=== PATIENT | male | born 1955 | race Caucasian/White ===

== ENCOUNTER 2016-06-18 15:42 | Inpatient (IN) | payer OTHER ==
[~2016-06-18] VITALS: Ht 172.7 cm; Wt 78.9 kg
[2016-06-18] MEDS ORDERED: DIABETES MEDS (15:49)
[2016-06-18] MEDS ORDERED: ACETAMINOPHEN 1000 MG/ISO-OSM 100 ML IV ONE (16:45)
[2016-06-18] MEDS ORDERED: SODIUM CHLORIDE 0.9% 1,000 ML IV ONE (16:45)
[2016-06-18 17:03] LABS: EOSINOPHILS % (AUTO) 0.06 % (1.0-6.0); HEMATOCRIT 23.9 % (41-53); HEMOGLOBIN 7.8 g/dL (13.5-17.5); LYMPHOCYTES # (AUTO) 0.5 K/uL (1.0-4.8); LYMPHOCYTES % (AUTO) 10.4 % (22.0-44.0); MEAN CORPUSCULAR HEMOGLOBIN 23.2 pg (26.0-34.0); MEAN CORPUSCULAR HGB CONC 32.8 G/dL (31.0-37.0); MEAN CORPUSCULAR VOLUME 71 fL (80-100); MONOCYTES # (AUTO) 0.1 K/uL (0.1-1.0); MONOCYTES % (AUTO) 2.4 % (2.0-9.0); NEUTROPHILS # (AUTO) 4.6 K/uL (1.8-7.7); RED BLOOD CELL COUNT(AUTO) 3.38 MIL/uL (4.50-5.90); WHITE BLOOD COUNT (AUTO) 5.2 K/uL (4.5-11.0)
[2016-06-18 17:04] LABS: NEUTROPHILS % (AUTO) 87.1 % (40.0-70.0)
[2016-06-18 17:11] LABS: ANION GAP 14 mmol/L (8-16); CALCIUM, TOTAL 7.8 mg/dL (8.8-10.5); CARBON DIOXIDE 21 mmol/L (22-29); CHLORIDE 97 mmol/L (98-107); CREATININE 1.82 mg/dL (0.60-1.30); GLOMERULAR FILTR. RATE CALC 38 mL/min (>60); POTASSIUM 3.8 mmol/L (3.5-5.1); SODIUM SERUM 132 mmol/L (136-145); UREA NITROGEN, BLOOD 24 mg/dL (7-18)
[2016-06-18 17:15] LABS: PLATELET COUNT (AUTO) 96 K/uL (150-450); RBC MORPHOLOGY COMMENT ABNORMAL RBC MORPH
[2016-06-18 17:18] LABS: ALANINE AMINOTRANSFERASE 34 U/L (12-78); ALBUMIN 2.2 g/dL (3.4-5.0); ASPARTATE AMINOTRANSFERASE 64 U/L (15-37); BILIRUBIN,TOTAL 0.8 mg/dL (0.1-1.0); TOTAL PROTEIN, SERUM 6.1 g/dL (6.4-8.2)
[2016-06-18 18:26] LABS: INFLUENZA TYPE B NEGATIVE FOR TYPE B (NEGATIVE)
[2016-06-18 18:55] LABS: REFLEX LACTIC ACID? YES YES
[2016-06-18 20:02] LABS: APPEARANCE,URINE CLOUDY (CLEAR); GLUCOSE, URINE (UA) NEGATIVE (NEGATIVE); KETONES,URINE NEGATIVE (NEGATIVE); LEUKOCYTE ESTERASE ,URINE NEGATIVE (NEGATIVE); OCCULT BLOOD,URINE TRACE (NEGATIVE); PH,URINE 5.5 (5.0-8.0); PROTEIN,URINE TRACE (NEGATIVE)
[2016-06-18 20:21] LABS: ADD UA MICROSCOPIC YES
[2016-06-18 20:57] LABS: SQUAMOUS EPITHELIAL CELL,UR Rare /LPF (None Seen)
[2016-06-18 20:58] LABS: WBC,URINE 0-2 /HPF (0-5)
[2016-06-18 20:59] VITALS: BP 80/55
[2016-06-18 21:15] VITALS: BP 80/60
[2016-06-18 21:30] VITALS: BP 88/69
[2016-06-18 22:00] VITALS: BP 106/74
[2016-06-18 22:29] VITALS: BP 97/60
[2016-06-18 23:00] VITALS: BP 82/55
[2016-06-18] MEDS ORDERED: SODIUM CHLORIDE 0.9% 500 ML IV ONE (23:44)
[2016-06-19] VITALS (14 sets, daily range): BP systolic 80–115; BP diastolic 55–72
[2016-06-19] MEDS ORDERED: SODIUM CHLORIDE 0.9% 1,000 ML IV ONE (00:30)
[2016-06-19 02:52] LABS: GLUCOSE,POINT OF CARE 116 MG/DL (70-110)
[2016-06-19] MEDS ORDERED: INSULIN ASPART 100 UNITS/ML SQ PRN (03:45)
[2016-06-19] MEDS ORDERED: DEXTROSE 50%-WATER 25 GM/50 ML SYRINGE IVP PRN (03:45)
[2016-06-19] MEDS ORDERED: OxyCODONE HCL/ACETAMINOPHEN 5-325 MG TABLET PO PRN ×2 (04:00)
[2016-06-19] MEDS ORDERED: ONDANSETRON HCL 4 MG/2 ML VIAL IVP PRN (04:00)
[2016-06-19] MEDS ORDERED: MAGNESIUM HYDROXIDE SUSPENSION 30 ML UDCUP PO PRN (04:00)
[2016-06-19] MEDS ORDERED: 0.9% SODIUM CHLORIDE 10 ML SYRINGE IVP PRN (04:00)
[2016-06-19] MEDS: SODIUM CHLORIDE 0.9% 1,000 ML IV SCH ×3 (04:12→22:50)
[2016-06-19 08:31] LABS: GLUCOSE,POINT OF CARE 88 MG/DL (70-110)
[2016-06-19] MEDS: DOCUSATE SODIUM 100 MG CAPSULE PO SCH ×2 (08:43→21:10)
[2016-06-19] MEDS: PANTOPRAZOLE SODIUM 40 MG/VIAL IVP SCH (08:43)
[2016-06-19] MEDS: ACETAMINOPHEN 325 MG TABLET PO PRN ×2 (08:47→17:22)
[2016-06-19 17:27] LABS: GLUCOSE,POINT OF CARE 79 MG/DL (70-110)
[2016-06-19 20:32] LABS: BASOPHILS % (AUTO) 0.4 % (0.0-2.0); EOSINOPHILS % (AUTO) 0.5 % (1.0-6.0); HEMATOCRIT 29.5 % (41-53); HEMOGLOBIN 9.6 g/dL (13.5-17.5); LYMPHOCYTES % (AUTO) 24.5 % (22.0-44.0); MEAN CORPUSCULAR HEMOGLOBIN 24.4 pg (26.0-34.0); MEAN CORPUSCULAR HGB CONC 32.4 G/dL (31.0-37.0); MEAN CORPUSCULAR VOLUME 75 fL (80-100); MONOCYTES # (AUTO) 0.2 K/uL (0.1-1.0); MONOCYTES % (AUTO) 4.7 % (2.0-9.0); NEUTROPHILS # (AUTO) 2.7 K/uL (1.8-7.7); NEUTROPHILS % (AUTO) 69.9 % (40.0-70.0); RED BLOOD CELL COUNT(AUTO) 3.92 MIL/uL (4.50-5.90); RED CELL DISTRIBUTION WIDTH 21.8 % (11.5-14.5); WHITE BLOOD COUNT (AUTO) 3.9 K/uL (4.5-11.0)
[2016-06-19 20:44] LABS: ANION GAP 10 mmol/L (8-16); CALCIUM, TOTAL 7.4 mg/dL (8.8-10.5); CARBON DIOXIDE 22 mmol/L (22-29); CHLORIDE 106 mmol/L (98-107); CREATININE 1.09 mg/dL (0.60-1.30); GLOMERULAR FILTR. RATE CALC > 60 mL/min (>60); POTASSIUM 3.6 mmol/L (3.5-5.1); SODIUM SERUM 138 mmol/L (136-145); UREA NITROGEN, BLOOD 17 mg/dL (7-18)
[2016-06-19 20:51] LABS: ALANINE AMINOTRANSFERASE 30 U/L (12-78); ALBUMIN 1.9 g/dL (3.4-5.0); ASPARTATE AMINOTRANSFERASE 44 U/L (15-37); BILIRUBIN,TOTAL 0.8 mg/dL (0.1-1.0); TOTAL PROTEIN, SERUM 5.3 g/dL (6.4-8.2)
[2016-06-19 20:59] LABS: PLATELET COUNT (AUTO) 80 K/uL (150-450); RBC MORPHOLOGY COMMENT ABNORMAL RBC MORPH
[2016-06-19 23:42] LABS: GLUCOSE,POINT OF CARE 112 MG/DL (70-110)
[2016-06-20 00:19] VITALS: BP 112/66
[2016-06-20] MEDS: ACETAMINOPHEN 325 MG TABLET PO PRN ×2 (04:20→14:24)
[2016-06-20 05:01] VITALS: BP 113/65
[2016-06-20 06:44] LABS: BASOPHILS % (AUTO) 0.3 % (0.0-2.0); EOSINOPHILS % (AUTO) 0.3 % (1.0-6.0); HEMATOCRIT 29.4 % (41-53); HEMOGLOBIN 9.5 g/dL (13.5-17.5); LYMPHOCYTES % (AUTO) 30.1 % (22.0-44.0); MEAN CORPUSCULAR HEMOGLOBIN 24.6 pg (26.0-34.0); MEAN CORPUSCULAR HGB CONC 32.4 G/dL (31.0-37.0); MEAN CORPUSCULAR VOLUME 76 fL (80-100); MONOCYTES # (AUTO) 0.1 K/uL (0.1-1.0); MONOCYTES % (AUTO) 4.3 % (2.0-9.0); NEUTROPHILS # (AUTO) 2.2 K/uL (1.8-7.7); PLATELET COUNT (AUTO) 77 K/uL (150-450); RED BLOOD CELL COUNT(AUTO) 3.87 MIL/uL (4.50-5.90); RED CELL DISTRIBUTION WIDTH 22.1 % (11.5-14.5); WHITE BLOOD COUNT (AUTO) 3.4 K/uL (4.5-11.0)
[2016-06-20 06:53] LABS: ANION GAP 10 mmol/L (8-16); CALCIUM, TOTAL 7.4 mg/dL (8.8-10.5); CARBON DIOXIDE 21 mmol/L (22-29); CHLORIDE 106 mmol/L (98-107); CREATININE 1.15 mg/dL (0.60-1.30); GLOMERULAR FILTR. RATE CALC > 60 mL/min (>60); POTASSIUM 3.3 mmol/L (3.5-5.1); SODIUM SERUM 137 mmol/L (136-145); UREA NITROGEN, BLOOD 14 mg/dL (7-18)
[2016-06-20 07:27] LABS: RBC MORPHOLOGY COMMENT ABNORMAL RBC MORPH
[2016-06-20 07:34] VITALS: BP 109/69
[2016-06-20] MEDS ORDERED: POTASSIUM CHLORIDE 20 MEQ ER TABLET PO ONE ×2 (07:45)
[2016-06-20 07:50] LABS: ALANINE AMINOTRANSFERASE 26 U/L (12-78); ALBUMIN 1.9 g/dL (3.4-5.0); ASPARTATE AMINOTRANSFERASE 40 U/L (15-37); BILIRUBIN,TOTAL 0.8 mg/dL (0.1-1.0); TOTAL PROTEIN, SERUM 5.3 g/dL (6.4-8.2)
[2016-06-20] MEDS: PANTOPRAZOLE SODIUM 40 MG/VIAL IVP SCH (08:52)
[2016-06-20] MEDS: DOCUSATE SODIUM 100 MG CAPSULE PO SCH (08:52)
[2016-06-20 10:31] LABS: GLUCOSE,POINT OF CARE 88 MG/DL (70-110)
[2016-06-20 11:51] VITALS: BP 131/79
[2016-06-20] MEDS: SODIUM CHLORIDE 0.9% 1,000 ML IV SCH (13:07)
[2016-06-20 16:17] VITALS: BP 103/58
[2016-06-21 07:21] LABS: GLUCOSE,POINT OF CARE 107 MG/DL (70-110)
[2016-06-21 07:21] LABS: GLUCOSE,POINT OF CARE 122 MG/DL (70-110)
== END 2016-06-20 19:00 | disposition home or self-care (01) | DRG 460 ==
LOC: EMS 15:45 → AHU 06-19 15:13 → 5S 06-19 18:15
PROVIDERS: ADMIT Internal Medicine; ATTEND Internal Medicine
PROC: 30233N1 Transfusion of Nonautologous Red Blood Cells into Peripheral Vein, Percutaneous Approach (ICD-10-PCS; principal; 2016-06-19)
DX: N17.9 Acute kidney failure, unspecified (principal); E43 Unspecified severe protein-calorie malnutrition; E87.1 Hypo-osmolality and hyponatremia; D64.9 Anemia, unspecified; E86.0 Dehydration; E11.9 Type 2 diabetes mellitus without complications; E87.6 Hypokalemia; Z79.84 Long term (current) use of oral hypoglycemic drugs; Z79.899 Other long term (current) drug therapy; Z68.26 Body mass index [BMI] 26.0-26.9, adult; Z83.3 Family history of diabetes mellitus
CPT/HCPCS: 82270; 82728; 82746; 82962; 83540; 83550; 83605; 84132; 85045; 86850; 86900; 86901; 86920; 87040; 87804; 93005; 96360; 96361; 96365; 96375; 99285; C9113; J0131; J7030; J7040; P9016